=== PATIENT | male | born 1980 | race Caucasian/White ===

== ENCOUNTER 2021-02-27 08:37 | Outpatient (REF) | payer OTHER, SELFPAY ==
--- NOTE | ~2021-02-27 | FL_ITS ---
EXAMINATION: FLUOROSCOPIC ESOPHAGRAM, BARIUM SWALLOW CLINICAL INFORMATION: Dysphagia. COMPARISON: None. TECHNIQUE: The barium swallow esophagram study is performed. The patient drank thick and thin barium consistencies under fluoroscopic observation with digital image acquisition. The patient was observed during swallowing in the lateral projection using a cine loop sequence. The patient also swallowed a 13 mm barium tablet with water under fluoroscopic observation. FINDINGS: Normal control of the liquid bolus with normal inversion of the epiglottis. No laryngeal penetration or aspiration. Normal esophageal motility. Normal caliber with no mucosal lesion or ulceration. No hiatal hernia. No spontaneous gastroesophageal reflux. The barium tablet coursed promptly into the stomach. No stricture. FLUOROSCOPY TIME: 1.3 minutes. Dose: 6.541 GyCM2 FL/FL barium swallow IMPRESSION: Normal barium swallow/esophagram.
== END 2021-02-27 08:38 | disposition home or self-care (01) ==
LOC: HO.XRAY 08:37
PROVIDERS: Visit Provider Otolaryngology
DX: R13.10 Dysphagia, unspecified (principal)
CPT/HCPCS: 74220